=== PATIENT | female | born 1930 | race Caucasian/White ===

== ENCOUNTER 2016-12-02 07:47 | Emergency (ER) | payer MEDICARE, BC ==
[~2016-12-02] VITALS: Ht 162.6 cm; Wt 40.8 kg
[~2016-12-02 07:47] MED LIST: ACET325T21 PO; ACET325T9 PO; ACET650T26 PO; AMLO5TAB2 PO; ASPI-482 PO; CALCIUM 500+VI1 EACH PO; CIPR250T30 PO; CITA10TA4 PO; DOCU100C28 PO; DONE5TAB56 PO; FOLI1TAB16 PO; GABA-586 PO; GABA600T2 PO; INFL100V IV; L GA1CAP2 PO; LISI-334 PO; LISI40TA PO; MAGN64TA6 PO; MENT118G TP; METH2.5T PO; METO25TA4 PO; METO50TA2 PO; METR500T PO; MULT-245 PO; NITR100C62 PO; OXYC5CAP PO; POLY17PO29 PO; POTA20TA12 PO; SENN1TAB37 PO; SOTA80TA48 PO; [UNRECOGNIZED DRUG - CODE] PO
--- NOTE | 2016-12-02 08:19 | RAD ---
PQRS Compliance Statement: One or more of the following individualized dose reduction techniques were utilized for this examination: 1. Automated exposure control 2. Adjustment of the mA and/or kV according to patient size 3. Use of iterative reconstruction technique CT HEAD WITHOUT CONTRAST History: somnolence found on floor, altered mental status. Comparison: CT head without contrast, 09/03/2015. Technique: Axial images are obtained of the head from the skull base through the vertex without IV contrast. Findings: No mass-effect, midline shift, hemorrhage or obvious acute infarction is identified. Basilar cisterns are patent. The ventricles and sulci are prominent, consistent with age-related cerebral atrophy. There is subcortical and periventricular white matter hypoattenuation. This is a nonspecific finding but is commonly due to chronic small vessel ischemic disease in a patient of this age. Bone windows demonstrate no acute calvarial abnormality. Mild mucosal thickening bilateral maxillary sinuses. No air-fluid levels. Mastoid air cells are well aerated. IMPRESSION: 1. No acute intracranial abnormality. 2. Age-related cerebral atrophy and periventricular and subcortical white matter changes of chronic small vessel ischemic disease.
[2016-12-02 08:22] LABS: BASO # 0.1 x10^3/uL (0.0-0.2); BASO % 1 % (0-3); EOS % 2 % (0-3); HEMATOCRIT 34.4 % (36.0-47.0); HEMOGLOBIN 11.5 g/dL (12.0-15.5); LYMPH % 17 % (24-48); MEAN CORPUSCULAR HEMOGLOBIN 27 pg (25-35); MEAN CORPUSCULAR HGB CONC 34 g/dL (31-37); MEAN CORPUSCULAR VOLUME 81 fL (79-100); MONO % 6 % (0-9); NEUT % 73 % (31-73); PLATELET COUNT 324 x10^3/uL (140-400); RED BLOOD COUNT 4.25 x10^6/uL (3.50-5.40); RED CELL DISTRIBUTION WIDTH 15.4 % (11.5-14.5); WHITE BLOOD COUNT 11.8 x10^3/uL (4.0-11.0)
--- NOTE | 2016-12-02 08:24 | PHYS DOC ---
Past Medical History Past Medical History: CAD, Dementia, Depression, Hypertension, Pneumonia, Other Additional Past Medical Histor: IBS,Pulmonary fibrosis,Rheumatoid arthritis, Osteoporosis,FAILURE TO THRIVE Past Surgical History: Cholecystectomy, Pacemaker, Other Additional Past Surgical Histo: Bilateral mastectomy with implant, BILATERAL LUMPECTOMIES Alcohol Use: Occasionally Drug Use: None Adult General Chief Complaint Chief Complaint: MECHANICAL FALL HPI HPI 86-year-old female presenting to the emergency department after sliding down her bed. She reports minor head trauma on the left back side. She has a mild headache that is nonradiating intermittent and without alleviating factors. Not associated with numbness weakness or tingling. She denies vision changes. Otherwise she denies any pain. She is sent here by EMS today. correction staff reports that the patient has baseline confusion. They're unsure if she is a little bit more confused than normal. Here the patient is able to easily articulate what happened to me and does not appear confused. She is oriented 4. Review of systems was negative for chest pain shortness of breath abdominal pain nausea vomiting or vision changes numbness weakness or tingling. All other review of systems is negative unless otherwise noted in history of present illness. ED course: 86-year-old female presenting to the emergency department with head trauma. She is not on blood thinners. Head CT EKG blood work urinalysis obtained. Unremarkable other than mild hypokalemia which I gave her a script for. The patient's mental status: The patient is alert and oriented. She follows commands. She opens eyes spontaneously. No pain in the hips with palpation and range of motion of the hips. Normal exam of the hips. The patient was then discharged home in stable condition to follow up with their primary care physician over the next 2-3 days. They were to return if their symptoms worsened or if they were concerned for any reason. [id number] discharge instructions and return precautions were given. Patient's questions were answered to their satisfaction. Patient is comfortable plan. Review of Systems Review of Systems SEE ABOVE. Allergies Allergies Allergies Coded Allergies Type Severity Reaction Last Updated Verified Penicillins Allergy Intermediate 04/26/14 Yes codeine Allergy Intermediate 04/26/14 Yes Physical Exam Physical Exam Constitutional: Well developed, well nourished, no acute distress, non-toxic appearance. [] HENT: Normocephalic, mild abrasion on the left posterior occiput without any laceration ecchymosis. No depressed skull fractures., bilateral external ears normal, oropharynx moist, no oral exudates, nose normal. [] Eyes: PERRLA, EOMI, conjunctiva normal, no discharge. [] Neck: Normal range of motion, no tenderness, supple, no stridor. [] Cardiovascular:Heart rate regular rhythm, no murmur [] Lungs & Thorax: Bilateral breath sounds clear to auscultation [] Abdomen: Bowel sounds normal, soft, no tenderness, no masses, no pulsatile masses. [] Skin: Warm, dry, no erythema, no rash. [] Back: No tenderness, no CVA tenderness. [] Extremities: No tenderness, no cyanosis, no clubbing, ROM intact, no edema. [] Neurologic: Mental status: Awake oriented and alert x3 Cranial nerves: Extraocular movements intact, eyebrows leona bilaterally smile symmetric, uvula elevation, shoulder shrug intact, tongue protrusion normal DTRs: 2+ Sensation: equal and normal in all extremities Strength: 5/5 in upper and lower extremities bilaterally Psychologic: Affect normal, judgement normal, mood normal. [] Current Patient Data Vital Signs Vital Signs Date Time Temp Pulse Resp B/P (MAP) Pulse Ox O2 Delivery O2 Flow Rate FiO2 12/02/16 08:30 72 20 176/78 (110) 93 Room Air 12/02/16 07:47 96.5 96.5 Lab Values Laboratory Tests Test 12/02/16 08:05 12/02/16 08:43 White Blood Count 11.8 x10^3/uL (4.0-11.0) H Red Blood Count 4.25 x10^6/uL (3.50-5.40) Hemoglobin 11.5 g/dL (12.0-15.5) L Hematocrit 34.4 % (36.0-47.0) L Mean Corpuscular Volume 81 fL (79-100) Mean Corpuscular Hemoglobin 27 pg (25-35) Mean Corpuscular Hemoglobin Concent 34 g/dL (31-37) Red Cell Distribution Width 15.4 % (11.5-14.5) H Platelet Count 324 x10^3/uL (140-400) Neutrophils (%) (Auto) 73 % (31-73) Lymphocytes (%) (Auto) 17 % (24-48) L Monocytes (%) (Auto) 6 % (0-9) Eosinophils (%) (Auto) 2 % (0-3) Basophils (%) (Auto) 1 % (0-3) Neutrophils # (Auto) 8.7 x10^3uL (1.8-7.7) H Lymphocytes # (Auto) 2.0 x10^3/uL (1.0-4.8) Monocytes # (Auto) 0.8 x10^3/uL (0.0-1.1) Eosinophils # (Auto) 0.3 x10^3/uL (0.0-0.7) Basophils # (Auto) 0.1 x10^3/uL (0.0-0.2) Sodium Level 136 mmol/L (136-145) Potassium Level 3.2 mmol/L (3.5-5.1) L Chloride Level 98 mmol/L (98-107) Carbon Dioxide Level 35 mmol/L (21-32) H Anion Gap 3 (6-14) L Blood Urea Nitrogen 10 mg/dL (7-20) Creatinine 0.8 mg/dL (0.6-1.0) Estimated GFR (Cockcroft-Gault) 68.0 Glucose Level 100 mg/dL (70-99) H Calcium Level 9.8 mg/dL (8.5-10.1) Total Bilirubin 0.4 mg/dL (0.2-1.0) Direct Bilirubin 0.1 mg/dL (0.0-0.2) Aspartate Amino Transferase (AST) 14 U/L (15-37) L Alanine Aminotransferase (ALT) 7 U/L (14-59) L Alkaline Phosphatase 65 U/L (46-116) Troponin I Quantitative < 0.017 ng/mL (0.000-0.055) Total Protein 7.7 g/dL (6.4-8.2) Albumin 2.4 g/dL (3.4-5.0) L Lipase 109 U/L (73-393) Urine Collection Type U cath Urine Color Yellow Urine Clarity Clear Urine pH 7.5 Urine Specific [place] 1.010 Urine Protein Negative mg/dL (NEG-TRACE) Urine Glucose (UA) Negative mg/dL (NEG) Urine Ketones (Stick) Negative mg/dL (NEG) Urine Blood Negative (NEG) Urine Nitrite Negative (NEG) Urine Bilirubin Negative (NEG) Urine Urobilinogen Dipstick 0.2 mg/dL (0.2 mg/dL) Urine Leukocyte Esterase Negative (NEG) Urine RBC 1-2 /HPF (0-2) Urine WBC 1-4 /HPF (0-4) Urine Squamous Epithelial Cells None /LPF Urine Amorphous Sediment Present /HPF Urine Bacteria 0 /HPF (0-FEW) Urine Mucus Slight /LPF Laboratory Tests 12/02/16 08:05 Laboratory Tests 12/02/16 08:05 EKG EKG [] Radiology/Procedures Radiology/Procedures [] Course & Med Decision Making Course & Med Decision Making Pertinent Labs and Imaging studies reviewed. (See chart for details) [] Dragon Disclaimer Dragon Disclaimer This electronic medical record was generated, in whole or in part, using a voice recognition dictation system. Departure Departure Impression: Primary Impression: Fall Additional Impression: Head injury Disposition: HOME, SELF-CARE Condition: STABLE Referrals: NINO YOU MD (PCP) Patient Instructions: Fall Prevention and Home Safety, Head Injury, Adult Additional Instructions: Thank you for allowing us to participate in your care today. Followup with your primary care physician in 3 days if your symptoms do not improve. Call your Primary Doctor tomorrow and inform them of your visit today. If you do not have a primary care provider you can ask for a list of our primary care providers. Return to the emergency department you have any new or concerning findings. This should be evaluated by the primary care physician and any necessary consulting services for continued management within a few days after discharge. Return to emergency room if you have any new or concerning symptoms including but not limited to fever, chills, nausea, vomiting, intractable pain, any new rashes, chest pain, shortness of air, uncontrolled bleeding, difficulty breathing, and/or vision loss. Scripts Potassium Chloride (POTASSIUM CHLORIDE) 10 Meq Capsule.er 10 MEQ PO DAILY for 5 Days, #5 TAB.SR Prov: DANELLE ALVES MD 12/02/16 Problem Qualifiers DANELLE ALVES MD Dec 02, 2016 08:24
[2016-12-02 08:40] LABS: CALCIUM 9.8 mg/dL (8.5-10.1); CREATININE 0.8 mg/dL (0.6-1.0); POTASSIUM 3.2 mmol/L (3.5-5.1)
[2016-12-02 08:41] LABS: ALBUMIN 2.4 g/dL (3.4-5.0); DIRECT BILIRUBIN 0.1 mg/dL (0.0-0.2); TOTAL BILIRUBIN 0.4 mg/dL (0.2-1.0); TOTAL PROTEIN 7.7 g/dL (6.4-8.2)
--- NOTE | 2016-12-02 08:45 | EKG ---
[facility] [address] [place] [address] Test Date: 2016-12-02 Test Time: 08:10:50 Pat Name: JACKIE SIHPLEY Department: Room: Gender: [facility] Att[facility]: : 1930 Requested By: DANELLE ALVES Order Number: [id number] Reading MD: Measurements Intervals [place] Rate: 72 P: 61 GA: 196 QRS: 51 QRSD: 92 T: 61 QT: 440 QTc: 484 Interpretive Statements SINUS RHYTHM QRS(T) CONTOUR ABNORMALITY CONSIDER ANTEROSEPTAL MYOCARDIAL DAMAGE PROLONGED QT RI6.01 Unconfirmed report No previous ECG available for comparison
[2016-12-02 08:56] LABS: BILIRUBIN,URINE NEGATIVE (NEG); GLUCOSE,URINE NEGATIVE (NEG); NITRITE,URINE NEGATIVE (NEG); PH,URINE 7.5; PROTEIN,URINE NEGATIVE (NEG-TRACE); UROBILINOGEN,URINE 0.2 mg/dL (0.2 mg/dL)
[2016-12-02 09:07] LABS: BACTERIA,URINE 0 /HPF (0-FEW)
[2016-12-02] MEDS ORDERED: POTASSIUM CHLO10 MEQ PO (09:16)
[2016-12-02 09:39] VITALS: BP 176/78
== END 2016-12-02 09:39 | disposition home or self-care (01) ==
LOC: ER 07:47
DX: S09.90XA Unspecified injury of head, initial encounter (principal); I25.10 Atherosclerotic heart disease of native coronary artery without angina pectoris; I10 Essential (primary) hypertension; E87.6 Hypokalemia; F03.90 Unspecified dementia, unspecified severity, without behavioral disturbance, psychotic disturbance, mood disturbance, and anxiety; K58.9 Irritable bowel syndrome, unspecified; M06.9 Rheumatoid arthritis, unspecified; M81.0 Age-related osteoporosis without current pathological fracture; Z95.0 Presence of cardiac pacemaker; Z88.0 Allergy status to penicillin; Z88.6 Allergy status to analgesic agent; W19.XXXA Unspecified fall, initial encounter; Y93.89 Activity, other specified; Y99.8 Other external cause status; Y92.89 Other specified places as the place of occurrence of the external cause
CPT/HCPCS: 36415; 70450; 80048; 80076; 81001; 83690; 84484; 85027; 93005; 99285; P9612

== ENCOUNTER 2017-05-31 16:29 | Emergency (ER) | payer MEDICARE, BC ==
[~2017-05-31] VITALS: Ht 160 cm; Wt 36.3 kg
[~2017-05-31 16:29] MED LIST changes: -METO50TA2 PO; +METO50TA6 PO; +POTASSIUM CHLO10 MEQ PO
[2017-05-31 17:22] LABS: BILIRUBIN,URINE NEGATIVE (NEG); GLUCOSE,URINE NEGATIVE (NEG); NITRITE,URINE POSITIVE (NEG); PROTEIN,URINE NEGATIVE (NEG-TRACE); UROBILINOGEN,URINE 0.2 mg/dL (0.2 mg/dL)
[2017-05-31 17:32] LABS: BACTERIA,URINE MANY /HPF (0-FEW); RBC,URINE 0 /HPF (0-2); SQUAMOUS EPITHELIAL CELL,UR OCC /LPF; WBC,URINE TNTC /HPF (0-4)
--- NOTE | 2017-05-31 17:39 | RAD ---
PQRS Compliance Statement: One or more of the following individualized dose reduction techniques were utilized for this examination: 1. Automated exposure control 2. Adjustment of the mA and/or kV according to patient size 3. Use of iterative reconstruction technique CT abdomen/pelvis without contrast May 31, 2017 INDICATION: Severe low back pain. COMPARISON: CT abdomen/pelvis April 02, 2015 TECHNIQUE: Multiple axial CT images of the abdomen and pelvis were obtained without intravenous contrast. Coronal and sagittal reformats are provided. FINDINGS: Bilateral breast prosthesis are present with thick rim of calcification. There is bronchiectasis the lung bases with patchy tree-in-bud nodularity. There is a 5 mm solid noncalcified pulmonary nodule in the anterior right lower lobe. Bronchial wall thickening is compatible with bronchitis. Heart size is borderline enlarged. Cardiac pacer wires are partially profiled. Evaluation of the solid abdominal viscera is limited by the lack of intravenous contrast and intraperitoneal fat. The liver is normal in size. No definite hepatic lesions are identified. Spleen is nonenlarged. Punctate calcifications are likely sequela of prior granulomatous exposure. Pancreas is grossly within normal limits. Gallbladder is suspected to be surgically absent. The abdominal aorta is tortuous with advanced atherosclerotic calcification. Kidneys appear symmetric. No renal calculi are identified. No hydronephrosis. It is difficult to assess the course of the ureters given the lack of intraperitoneal fat and closely apposed bowel loops. There is colonic diverticulosis without adjacent inflammatory changes. Evaluation of the bowel is limited by lack of oral contrast and intraperitoneal fat. No definite bowel obstruction. No definite pericolonic inflammatory changes are identified. Appendix is not definitively visualized. Urinary bladder is within normal limits given degree of distention. No suspicious pelvic masses are identified. Stable appearance of superior endplate compression deformities involving T12, L2 and L4. There is similar superior plate compression deformity involving L1 dating back to September 06, 2015. There is subtle lucency involving the superior aspect of the L5 vertebral body without definite compression deformity. IMPRESSION: 1. Osteoporotic compression fractures involving the lumbar spine appear stable dating back to September 06, 2015. If there is concern for acute on chronic injury, further evaluation with lumbar MRI may be of benefit. 2. Evaluation of the abdomen and pelvis is limited by lack of intravenous contrast, oral contrast and intraperitoneal fat. 3. Colonic diverticulosis without adjacent inflammatory changes. Appendix is not definitively visualized. 4. Bronchitis with lower lobe bronchiectasis. Tree-in-bud nodularity in the lower lobes may represent infectious/inflammatory etiology. There is a 4 mm solid noncalcified pulmonary nodule in the right lower lobe, not previously seen and indeterminate. Findings favor an infectious/inflammatory process. Electronically signed by: Leonila Goodman MD (05/31/2017 5:36 PM) [facility]
--- NOTE | 2017-05-31 17:52 | RAD ---
PQRS Compliance Statement: One or more of the following individualized dose reduction techniques were utilized for this examination: 1. Automated exposure control 2. Adjustment of the mA and/or kV according to patient size 3. Use of iterative reconstruction technique CT lumbar spine without contrast 05/31/2017 INDICATION: Lumbar low back pain. COMPARISON: MRI lumbar spine September 06, 2019 TECHNIQUE: Lumbar spine reconstructions from CT abdomen pelvis were performed. Axial, coronal and sagittal reformatted images are provided. FINDINGS: There is vertebral plana of T12 with retropulsion, stable dating back to August 29, 2015. There is mild to moderate associated spinal canal stenosis. Vacuum disc phenomena is identified at T11-T12. There is a superior endplate compression deformity involving L1 with approximately 25 percent loss of height. This appears chronic. No significant retropulsion. There is compression deformity involving L2 with approximately 25 percent loss of height. No significant retropulsion. This appears chronic. L3 is normal in height. There is near vertebral plana of L4. Findings are stable. There is subtle lucency involving the superior endplate of L5 without height loss. No definite fracture is identified. There is levoconvex scoliosis of the lumbar spine with apex levocurvature at L2-L3. No acute fracture is identified. There is moderate facet arthropathy in the lower lumbar spine. IMPRESSION: Morphology of osteoporotic compression fractures of the lumbar spine appear similar dating back to August 29, 2015. However, if there is suspicion for acute on chronic fracture, further evaluation with MRI of the lumbar spine is recommended. Electronically signed by: Leonila Goodman MD (05/31/2017 5:48 PM) [facility]
[2017-05-31 17:56] LABS: BASO # 0.1 x10^3/uL (0.0-0.2); BASO % 1 % (0-3); EOS % 4 % (0-3); HEMATOCRIT 31.1 % (36.0-47.0); HEMOGLOBIN 10.2 g/dL (12.0-15.5); LYMPH # 2.4 x10^3/uL (1.0-4.8); LYMPH % 18 % (24-48); MEAN CORPUSCULAR HEMOGLOBIN 29 pg (25-35); MEAN CORPUSCULAR HGB CONC 33 g/dL (31-37); MEAN CORPUSCULAR VOLUME 88 fL (79-100); MONO % 6 % (0-9); NEUT % 72 % (31-73); PLATELET COUNT 297 x10^3/uL (140-400); RED BLOOD COUNT 3.52 x10^6/uL (3.50-5.40); RED CELL DISTRIBUTION WIDTH 16.2 % (11.5-14.5); WHITE BLOOD COUNT 13.7 x10^3/uL (4.0-11.0)
[2017-05-31 18:08] LABS: CALCIUM 10.5 mg/dL (8.5-10.1); CREATININE 0.9 mg/dL (0.6-1.0); GFR 59.2; POTASSIUM 4.6 mmol/L (3.5-5.1)
[2017-05-31 18:15] LABS: ALBUMIN 2.8 g/dL (3.4-5.0); ALBUMIN/GLOBULIN RATIO 0.5 (1.0-1.7); TOTAL BILIRUBIN 0.2 mg/dL (0.2-1.0); TOTAL PROTEIN 8.3 g/dL (6.4-8.2)
--- NOTE | 2017-05-31 19:01 | PHYS DOC ---
Past Medical History Past Medical History: CAD, Dementia, Depression, Hypertension, Pneumonia, Other Additional Past Medical Histor: IBS,Pulmonary fibrosis,Rheumatoid arthritis, Osteoporosis,FAILURE TO THRIVE Past Surgical History: Cholecystectomy, Pacemaker, Other Additional Past Surgical Histo: Bilateral mastectomy with implant, BILATERAL LUMPECTOMIES Alcohol Use: None Drug Use: None Adult General Chief Complaint Chief Complaint: LOWER BACK PAIN OR INJURY HPI HPI Patient is a 87 year old female who presents with lower back pain. The patient states she was at [facility] where she resides in assisted living , tried to stand from her wheelchair & felt sudden sharp pain in her lower back. Continues to have pain now. She initially denies previous history of back pain, but also says that part of the reason she is wheelchair bound is that she has longstanding back pain & decreased mobility. She denies fall today. She denies fevers/chills, abdominal pain, lower extremity numbness/ weakness, bowel/bladder incontinence or retention (none new today, some at baseline), saddle anesthesia, dysuria/hematuria. PCP is Dr. Dumont. The patient is a poor historian. Review of Systems Review of Systems Constitutional: Denies fever or chills Eyes: Denies change in visual acuity HENT: Denies nasal congestion or sore throat Respiratory: Denies cough or shortness of breath Cardiovascular: Denies chest pain or edema GI: Denies abdominal pain, nausea, vomiting, bloody stools or diarrhea : Denies dysuria or hematuria Musculoskeletal: Reports back pain, denies joint pain Integument: Denies rash or skin lesions Neurologic: Denies headache, focal weakness or sensory changes All other systems were reviewed and found to be within normal limits, except as documented in this note. Allergies Allergies Allergies Coded Allergies Type Severity Reaction Last Updated Verified Penicillins Allergy Intermediate 04/26/14 Yes codeine Allergy Intermediate 04/26/14 Yes Physical Exam Physical Exam Constitutional: thin, frail, no acute distress, non-toxic appearance. HENT: Normocephalic, atraumatic, bilateral external ears normal, oropharynx moist, nose normal. Eyes: conjunctiva normal, no discharge. Neck: supple, no stridor. Cardiovascular: RRR, no murmurs, no edema. Lungs & Thorax: LCTAB, no wheezing, no respiratory distress. Abdomen: soft, nontender, nondistended. no masses or pulsatile masses, no rebound/guarding. Skin: Warm, dry, no erythema, no rash. Back: No focal spinal tenderness or step offs. no CVA tenderness. Extremities: No tenderness, no edema. distal pulses palpable in bilateral lower extremities. Neurologic: Alert and oriented X 3, symmetric strength/sensation to lower extremities, no focal deficits noted. Psychologic: Affect normal, judgement normal, mood normal. Current Patient Data Vital Signs Vital Signs Date Time Temp Pulse Resp B/P (MAP) Pulse Ox O2 Delivery O2 Flow Rate FiO2 05/31/17 19:09 96 18 185/93 (123) 97 Room Air 05/31/17 16:58 98.8 98.8 Lab Values Laboratory Tests Test 05/31/17 16:50 05/31/17 17:47 Urine Color Yellow Urine Clarity Cloudy Urine pH 7.0 Urine Specific [place] 1.020 Urine Protein Negative mg/dL (NEG-TRACE) Urine Glucose (UA) Negative mg/dL (NEG) Urine Ketones (Stick) Negative mg/dL (NEG) Urine Blood Negative (NEG) Urine Nitrite Positive (NEG) Urine Bilirubin Negative (NEG) Urine Urobilinogen Dipstick 0.2 mg/dL (0.2 mg/dL) Urine Leukocyte Esterase Large (NEG) Urine RBC 0 /HPF (0-2) Urine WBC Tntc /HPF (0-4) Urine Squamous Epithelial Cells Occ /LPF Urine Bacteria Many /HPF (0-FEW) Urine Mucus Slight /LPF White Blood Count 13.7 x10^3/uL (4.0-11.0) H Red Blood Count 3.52 x10^6/uL (3.50-5.40) Hemoglobin 10.2 g/dL (12.0-15.5) L Hematocrit 31.1 % (36.0-47.0) L Mean Corpuscular Volume 88 fL (79-100) Mean Corpuscular Hemoglobin 29 pg (25-35) Mean Corpuscular Hemoglobin Concent 33 g/dL (31-37) Red Cell Distribution Width 16.2 % (11.5-14.5) H Platelet Count 297 x10^3/uL (140-400) Neutrophils (%) (Auto) 72 % (31-73) Lymphocytes (%) (Auto) 18 % (24-48) L Monocytes (%) (Auto) 6 % (0-9) Eosinophils (%) (Auto) 4 % (0-3) H Basophils (%) (Auto) 1 % (0-3) Neutrophils # (Auto) 9.8 x10^3uL (1.8-7.7) H Lymphocytes # (Auto) 2.4 x10^3/uL (1.0-4.8) Monocytes # (Auto) 0.8 x10^3/uL (0.0-1.1) Eosinophils # (Auto) 0.5 x10^3/uL (0.0-0.7) Basophils # (Auto) 0.1 x10^3/uL (0.0-0.2) Sodium Level 138 mmol/L (136-145) Potassium Level 4.6 mmol/L (3.5-5.1) Chloride Level 102 mmol/L (98-107) Carbon Dioxide Level 29 mmol/L (21-32) Anion Gap 7 (6-14) Blood Urea Nitrogen 25 mg/dL (7-20) H Creatinine 0.9 mg/dL (0.6-1.0) Estimated GFR (Cockcroft-Gault) 59.2 BUN/Creatinine Ratio 28 (6-20) H Glucose Level 104 mg/dL (70-99) H Calcium Level 10.5 mg/dL (8.5-10.1) H Total Bilirubin 0.2 mg/dL (0.2-1.0) Aspartate Amino Transferase (AST) 16 U/L (15-37) Alanine Aminotransferase (ALT) 8 U/L (14-59) L Alkaline Phosphatase 84 U/L (46-116) Total Protein 8.3 g/dL (6.4-8.2) H Albumin 2.8 g/dL (3.4-5.0) L Albumin/Globulin Ratio 0.5 (1.0-1.7) L Laboratory Tests 05/31/17 17:47 Laboratory Tests 05/31/17 17:47 EKG EKG [] Radiology/Procedures Radiology/Procedures PROCEDURE: CT ABDOMEN PELVIS WO CONTRAST PQRS Compliance Statement: One or more of the following individualized dose reduction techniques were utilized for this examination: 1. Automated exposure control 2. Adjustment of the mA and/or kV according to patient size 3. Use of iterative reconstruction technique CT abdomen/pelvis without contrast May 31, 2017 INDICATION: Severe low back pain. COMPARISON: CT abdomen/pelvis April 02, 2015 TECHNIQUE: Multiple axial CT images of the abdomen and pelvis were obtained without intravenous contrast. Coronal and sagittal reformats are provided. FINDINGS: Bilateral breast prosthesis are present with thick rim of calcification. There is bronchiectasis the lung bases with patchy tree-in-bud nodularity. There is a 5 mm solid noncalcified pulmonary nodule in the anterior right lower lobe. Bronchial wall thickening is compatible with bronchitis. Heart size is borderline enlarged. Cardiac pacer wires are partially profiled. Evaluation of the solid abdominal viscera is limited by the lack of intravenous contrast and intraperitoneal fat. The liver is normal in size. No definite hepatic lesions are identified. Spleen is nonenlarged. Punctate calcifications are likely sequela of prior granulomatous exposure. Pancreas is grossly within normal limits. Gallbladder is suspected to be surgically absent. The abdominal aorta is tortuous with advanced atherosclerotic calcification. Kidneys appear symmetric. No renal calculi are identified. No hydronephrosis. It is difficult to assess the course of the ureters given the lack of intraperitoneal fat and closely apposed bowel loops. There is colonic diverticulosis without adjacent inflammatory changes. Evaluation of the bowel is limited by lack of oral contrast and intraperitoneal fat. No definite bowel obstruction. No definite pericolonic inflammatory changes are identified. Appendix is not definitively visualized. Urinary bladder is within normal limits given degree of distention. No suspicious pelvic masses are identified. Stable appearance of superior endplate compression deformities involving T12, L2 and L4. There is similar superior plate compression deformity involving L1 dating back to September 06, 2015. There is subtle lucency involving the superior aspect of the L5 vertebral body without definite compression deformity. IMPRESSION: 1. Osteoporotic compression fractures involving the lumbar spine appear stable dating back to September 06, 2015. If there is concern for acute on chronic injury, further evaluation with lumbar MRI may be of benefit. 2. Evaluation of the abdomen and pelvis is limited by lack of intravenous contrast, oral contrast and intraperitoneal fat. 3. Colonic diverticulosis without adjacent inflammatory changes. Appendix is not definitively visualized. 4. Bronchitis with lower lobe bronchiectasis. Tree-in-bud nodularity in the lower lobes may represent infectious/inflammatory etiology. There is a 4 mm solid noncalcified pulmonary nodule in the right lower lobe, not previously seen and indeterminate. Findings favor an infectious/inflammatory process. Electronically signed by: Scot Botello MD (05/31/2017 5:36 PM) [facility] DICTATED and SIGNED BY: SCOT BOTELLO MD DATE: 05/31/17 1726 [] Course & Med Decision Making Course & Med Decision Making Pertinent Labs and Imaging studies reviewed. (See chart for details) The patient presents with back pain. She is a poor historian & exam not showing obvious focal tenderness. Obtained CT of lumbar spine as well as abdomen/pelvis. She has evidence of old compression fractures but no new abnormality. Pulmonary findings as above, history of pulmonary fibrosis with no new respiratory complaints today. UA shows UTI. I attempted to discuss with Dr. Wayne pipe connector for Dr. Dumont but they do not care for patients at the [facility]. Patient has no flank pain, vitals stable, afebrile. Mild leukocytosis. Will give oral antibiotics but she will require close follow up with primary care. Recommend supportive care for back pain, rest, heating pad, stretching, tylenol. Macrobid for UTI, urine culture sent. Follow up with primary care in 2-3 days. Come back for high fever, severe pain, uncontrolled vomiting, symptoms of cauda equina syndrome, any otherwise worsening condition. Discharged home in stable condition. [] Dragon Disclaimer Dragon Disclaimer This electronic medical record was generated, in whole or in part, using a voice recognition dictation system. Departure Departure Impression: Primary Impression: UTI (lower urinary tract infection) Additional Impression: Acute exacerbation of chronic low back pain Disposition: 01 HOME, SELF-CARE Condition: STABLE Referrals: NINO DUMONT MD (PCP) Patient Instructions: Back Pain, Adult, [id number], Urinary Tract Infection, [id number] Additional Instructions: You were seen in the emergency department today for back pain. We did not find any serious new injuries. You have a urinary tract infection. Please take the prescribed antibiotic. Drink fluids to stay hydrated. Follow-up with primary care physician within 2-3 days. Return to the emergency department for high fever, severe pain, uncontrolled vomiting, numbness or weakness in legs, loss of control of bowels or bladder, any otherwise worsening condition. Scripts Nitrofurantoin Monohyd/M-Cryst (MACROBID 100 MG CAPSULE) 100 Mg Capsule 1 CAP PO BID, #14 CAP Prov: KAIDEN VILLANUEVA MD 05/31/17 Problem Qualifiers KAIDEN VILLANUEVA MD May 31, 2017 19:01
[2017-05-31] MEDS ORDERED: NITR100C62 PO (19:04)
[2017-05-31 19:09] VITALS: BP 185/93
== END 2017-05-31 19:10 | disposition home or self-care (01) ==
LOC: ER 16:29
DX: N39.0 Urinary tract infection, site not specified (principal); G89.29 Other chronic pain; M54.5 Low back pain; K58.9 Irritable bowel syndrome, unspecified; F03.90 Unspecified dementia, unspecified severity, without behavioral disturbance, psychotic disturbance, mood disturbance, and anxiety; I10 Essential (primary) hypertension; I25.10 Atherosclerotic heart disease of native coronary artery without angina pectoris; Z95.0 Presence of cardiac pacemaker; Z90.49 Acquired absence of other specified parts of digestive tract; Z99.3 Dependence on wheelchair; Z88.0 Allergy status to penicillin; Z88.5 Allergy status to narcotic agent
CPT/HCPCS: 36415; 74176; 80053; 81001; 85025; 87086; 99285-25